=== PATIENT | male | born 1960 | race Asian ===

== ENCOUNTER 2023-10-19 12:46 | Emergency (ER) | payer MEDICARE ==
[~2023-10-19] VITALS: Ht 154.9 cm; Wt 59.0 kg
[2023-10-19 12:48] VITALS: TEMP 98
[2023-10-19 14:25] LABS: BASOPHILS # (AUTO) 0.1 X10'3 (0-0.2); BASOPHILS % (AUTO) 0.8 % (0-1); EOSINOPHILS # (AUTO) 0.4 X10'3 (0-0.9); EOSINOPHILS % (AUTO) 3.6 % (0-6); HEMATOCRIT 44.3 % (42.0-52.0); HEMOGLOBIN 14.6 g/dl (14.0-17.9); LYMPHOCYTES # (AUTO) 2.4 X10'3 (1.1-4.8); LYMPHOCYTES % (AUTO) 24.4 % (21-51); MEAN CORPUSCULAR HEMOGLOBIN 32.3 PG (27.0-31.0); MEAN PLATELET VOLUME 8.7 FL (7.4-10.4); MONOCYTES # (AUTO) 1.4 X10'3 (0-0.9); MONOCYTES % (AUTO) 13.9 % (2-12); NEUTROPHILS # (AUTO) 5.6 X10'3 (1.8-7.7); NEUTROPHILS % (AUTO) 57.3 % (42-75); PLATELET COUNT 284 X10'3 (140-440); RED BLOOD COUNT 4.52 X10'6 (4.70-6.10); RED CELL DISTRIBUTION WIDTH 14.7 % (11.5-14.5); WHITE BLOOD COUNT 9.8 X10'3 (4.5-11.0)
[2023-10-19 14:49] LABS: ANION GAP 8 (8-16); BLOOD UREA NITROGEN 9 MG/DL (7-18); BUN/CREATININE RATIO 5.8 (10.0-20.0); CALCIUM 9.5 MG/DL (8.5-10.1); CHLORIDE 100 MMOL/L (99-107); CREATININE 1.54 MG/DL (0.60-1.10); GLUCOSE 119 MG/DL (70-104); POTASSIUM 4.2 MMOL/L (3.5-5.1); PRO BRAIN NATRIURETIC PEPTIDE 62 PG/ML (0-125); SODIUM 135 MMOL/L (135-145); TOTAL CARBON DIOXIDE 27.1 MMOL/L (24-32); eCRCL 37 ML/MIN; eGFR 46 ML/MIN
[2023-10-19] MEDS: normal saline 1000ml 1,000 ML IV ONE (15:48)
[2023-10-19] MEDS ORDERED: HYDR28CR14 TOP (16:03)
[2023-10-19 17:26] VITALS: BP 105/75; PULSE 65; RESP 17; O2SAT 97
== END 2023-10-19 17:35 | disposition home or self-care (01) ==
LOC: ER 12:47
DX: B34.9 Viral infection, unspecified (principal); Z20.822 Contact with and (suspected) exposure to COVID-19; E60 Dietary zinc deficiency; M79.10 Myalgia, unspecified site; R21 Rash and other nonspecific skin eruption
CPT/HCPCS: 36415; 71045; 80048; 83880; 84484; 85025; 87502; 87503; 87811; 93005; 96360; 99285; J7030

== ENCOUNTER 2024-08-04 17:13 | Inpatient (IN) | payer MEDICARE ==
[~2024-08-04] VITALS: Ht 154.9 cm; Wt 73.8 kg
[~2024-08-04 17:13] MED LIST: HYDR28CR14 TOP
[2024-08-04 19:21] LABS: BASOPHILS % (AUTO) 0.2 % (0-1); EOSINOPHILS # (AUTO) 0.2 X10'3 (0-0.9); EOSINOPHILS % (AUTO) 0.9 % (0-6); HEMATOCRIT 41.9 % (42.0-52.0); HEMOGLOBIN 14.1 g/dl (14.0-17.9); LYMPHOCYTES # (AUTO) 0.4 X10'3 (1.1-4.8); LYMPHOCYTES % (AUTO) 2.2 % (21-51); MEAN CORPUSCULAR HEMOGLOBIN 32.8 PG (27.0-31.0); MEAN CORPUSCULAR HGB CONC 33.6 g/dL (33.0-36.5); MEAN CORPUSCULAR VOLUME 97.6 FL (78-98); MEAN PLATELET VOLUME 9.9 FL (7.4-10.4); MONOCYTES # (AUTO) 0.6 X10'3 (0-0.9); MONOCYTES % (AUTO) 3.5 % (2-12); NEUTROPHILS # (AUTO) 16.4 X10'3 (1.8-7.7); NEUTROPHILS % (AUTO) 93.2 % (42-75); PLATELET COUNT 163 X10'3 (140-440); RED BLOOD COUNT 4.29 X10'6 (4.70-6.10); RED CELL DISTRIBUTION WIDTH 15.3 % (11.5-14.5); WHITE BLOOD COUNT 17.5 X10'3 (4.5-11.0)
[2024-08-04 19:41] LABS: TOTAL CELLS COUNTED 100
[2024-08-04 19:42] LABS: PLATELET ESTIMATE NORMAL
[2024-08-04 19:44] LABS: ALANINE AMINOTRANSFERASE 27 U/L (12-78); ALBUMIN/GLOBULIN RATIO 0.8 (1.1-1.5); ALKALINE PHOSPHATASE 82 IU/L (46-116); ANION GAP 11 (8-16); ASPARTATE AMINO TRANSFERASE 16 U/L (10-37); BILIRUBIN,TOTAL 0.9 MG/DL (0.1-1.0); BLOOD UREA NITROGEN 59 MG/DL (7-18); BUN/CREATININE RATIO 21.9 (10.0-20.0); CALCIUM 8.6 MG/DL (8.5-10.1); CHLORIDE 100 MMOL/L (99-107); CREATININE 2.69 MG/DL (0.60-1.10); GLUCOSE 97 MG/DL (70-104); POTASSIUM 3.7 MMOL/L (3.5-5.1); PRO BRAIN NATRIURETIC PEPTIDE 1216 PG/ML (0-125); SODIUM 132 MMOL/L (135-145); TOTAL CARBON DIOXIDE 20.7 MMOL/L (24-32); TOTAL PROTEIN 6.7 G/DL (6.4-8.2); eCRCL 21 ML/MIN; eGFR 24 ML/MIN
[2024-08-04] MEDS: normal saline 1000ml 1,000 ML IV STA (23:10)
[2024-08-05] MEDS: CefTRIAXone/D5W-Rocephin 1gm 50 ML IV STA
[2024-08-05] MEDS: normal saline 1000ml 1,000 ML IV STA (00:02)
[2024-08-05] MEDS: azithromycin/NS 500mg/250ml 250 ML IV STA (00:34)
[2024-08-05] MEDS ORDERED: mag hydrox/Alum hydrox/simeth 30ml oral suspension PO PRN (01:45)
[2024-08-05] MEDS ORDERED: magnesium Cl slow-release 64mg tablet PO PRN (01:45)
[2024-08-05] MEDS ORDERED: magnesium hydroxide 30ml (MOM) UD suspension PO PRN (01:45)
[2024-08-05] MEDS ORDERED: potassium Cl 40MEQ/1/2NS 520ml 520 ML IV PRN (01:45)
[2024-08-05] MEDS ORDERED: magnesium sulf-water 2g/50mL 50 ML IV PRN (01:45)
[2024-08-05] MEDS ORDERED: guaiFENesin/DM/phenylephrine syrup 120ml bottle PO PRN (01:45)
[2024-08-05] MEDS ORDERED: potassium Cl 20 mEq SR tablet PO PRN ×2 (01:45)
[2024-08-05] MEDS ORDERED: ondansetron/PF 4mg/2ml inj IV PRN (01:45)
[2024-08-05] MEDS ORDERED: magnesium sulf-water 4G/100mL 100 ML IV PRN (01:45)
[2024-08-05] MEDS ORDERED: ATOR20TA66 PO (02:09)
[2024-08-05] MEDS ORDERED: ALLO300T8 PO (02:09)
[2024-08-05 02:53] LABS: HEMOGLOBIN A1C 6.1 % (4.5-6.2); MAGNESIUM 1.7 MG/DL (1.5-2.4); POTASSIUM 3.9 MMOL/L (3.5-5.1)
[2024-08-05] MEDS: normal saline 1000ml 1,000 ML IV SCH (03:08)
[2024-08-05] MEDS: acetaminophen 325mg tablet PO PRN (05:31)
[2024-08-05 05:53] LABS: BILIRUBIN,URINE NEGATIVE (Neg); CLARITY,URINE CLEAR (Clear); COLOR,URINE YELLOW (Yellow); GLUCOSE, URINE NEGATIVE (Neg); KETONES,URINE NEGATIVE (Neg); LEUKOCYTE ESTERASE ,URINE SMALL (Neg); NITRITES, URINE NEGATIVE (Neg); OCCULT BLOOD,URINE NEGATIVE (Neg); PH,URINE 5.5 (4.8-8.0); PROTEIN,URINE NEGATIVE (Neg); UROBILINOGEN,URINE 0.2 E.U/dL (0.2-1.0)
[2024-08-05 06:04] LABS: UA COLLECTION TYPE CLN CATCH MIDSTREAM
[2024-08-05 06:14] LABS: WBC,URINE 20-30 /HPF (0-4)
[2024-08-05 06:15] LABS: BACTERIA,URINE FEW /HPF (Neg); MUCUS STRANDS NONE SEEN /LPF (Neg); RBC,URINE NONE SEEN /HPF (0-2); SQUAMOUS EPITHELIAL CELL,UR FEW /LPF (FEW); WBC CLUMPS,URINE FEW /HPF (NEGATIVE)
[2024-08-05 07:19] VITALS: BP 92/53; PULSE 64; RESP 18; TEMP 97.6; O2SAT 96
[2024-08-05] MEDS: pantoprazole 40mg Tablet.DR PO SCH (07:43)
[2024-08-05] MEDS: docusate sod 100mg capsule PO SCH (07:43)
[2024-08-05] MEDS: heparin, porcine 5000 units/ml vial SQ SCH (07:46)
[2024-08-05 08:00] VITALS: RESP 16
[2024-08-05] MEDS: K and/or MAG REPLACEMENT MC SCH (08:00)
[2024-08-05] MEDS: azithromycin/NS 500mg/250ml 250 ML IV SCH (09:39)
[2024-08-05 10:00] VITALS: BP 84/50; PULSE 62; RESP 17; TEMP 97.6; O2SAT 97
[2024-08-05] MEDS ORDERED: pneumococcal 23-VAL P-sac vacc 25 mcg/0.5ml vial IMVAC ONE (17:55)
[2024-08-05 18:00] VITALS: BP 87/55; PULSE 56; RESP 15; TEMP 98.1; O2SAT 99
[2024-08-05] MEDS: CefTRIAXone/D5W-Rocephin 1gm 50 ML IV SCH (21:22)
[2024-08-05 22:00] VITALS: BP 100/64; PULSE 60; RESP 12; TEMP 98.2; O2SAT 98
[2024-08-05] MEDS ORDERED: azithromycin 250mg tablet PO SCH (22:00)
[2024-08-05] MEDS ORDERED: ALLO100T PO (22:43)
[2024-08-06 05:26] LABS: BASOPHILS % (AUTO) 0.2 % (0-1); EOSINOPHILS # (AUTO) 0.2 X10'3 (0-0.9); EOSINOPHILS % (AUTO) 1.4 % (0-6); HEMATOCRIT 36.8 % (42.0-52.0); HEMOGLOBIN 12.3 g/dl (14.0-17.9); LYMPHOCYTES # (AUTO) 0.9 X10'3 (1.1-4.8); LYMPHOCYTES % (AUTO) 5.5 % (21-51); MEAN CORPUSCULAR HEMOGLOBIN 32.5 PG (27.0-31.0); MEAN CORPUSCULAR HGB CONC 33.4 g/dL (33.0-36.5); MEAN CORPUSCULAR VOLUME 97.4 FL (78-98); MEAN PLATELET VOLUME 9.2 FL (7.4-10.4); MONOCYTES # (AUTO) 1.3 X10'3 (0-0.9); MONOCYTES % (AUTO) 7.6 % (2-12); NEUTROPHILS # (AUTO) 14.5 X10'3 (1.8-7.7); NEUTROPHILS % (AUTO) 85.3 % (42-75); PLATELET COUNT 139 X10'3 (140-440); RED BLOOD COUNT 3.78 X10'6 (4.70-6.10); RED CELL DISTRIBUTION WIDTH 15.7 % (11.5-14.5)
[2024-08-06 05:40] LABS: ALBUMIN 1.9 G/DL (3.4-5.0); ANION GAP 11 (8-16); BLOOD UREA NITROGEN 56 MG/DL (7-18); BUN/CREATININE RATIO 33.5 (10.0-20.0); CALCIUM 8.7 MG/DL (8.5-10.1); CHLORIDE 112 MMOL/L (99-107); CHOL/HDL RATIO 3.9 (0.00-4.99); CHOLESTEROL 66 MG/DL (0-200); CREATININE 1.67 MG/DL (0.60-1.10); GLUCOSE 75 MG/DL (70-104); HDL CHOLESTEROL 17 MG/DL (35-60); LDL CHOLESTEROL 26 MG/DL (50-100); MAGNESIUM 2.2 MG/DL (1.5-2.4); POTASSIUM 3.8 MMOL/L (3.5-5.1); SODIUM 141 MMOL/L (135-145); TOTAL CARBON DIOXIDE 17.7 MMOL/L (24-32); TRIGLYCERIDES 92 MG/DL (20-135); eCRCL 33 ML/MIN; eGFR 42 ML/MIN
[2024-08-06 08:00] VITALS: RESP 13; O2SAT 97
[2024-08-06] MEDS: pneumococcal 23-VAL P-sac vacc 25 mcg/0.5ml vial IMVAC ONE (10:59)
[2024-08-06 18:00] VITALS: BP 113/71; PULSE 62; RESP 18; TEMP 97.4; O2SAT 9; O2SAT 92
[2024-08-06 19:55] VITALS: RESP 16; O2SAT 97
[2024-08-06] MEDS: guaiFENesin/DM 10ml UD oral syrup PO PRN (20:05)
[2024-08-06 22:00] VITALS: BP 132/90; PULSE 61; RESP 14; TEMP 97.6; O2SAT 97
[2024-08-07] MEDS: baclofen 10mg tablet PO PRN (01:58)
[2024-08-07] MEDS: diphenhydrAMINE 25mg capsule PO PRN (03:45)
[2024-08-07 04:17] LABS: BASOPHILS % (AUTO) 0.1 % (0-1); EOSINOPHILS # (AUTO) 0.2 X10'3 (0-0.9); EOSINOPHILS % (AUTO) 1.2 % (0-6); HEMATOCRIT 38.1 % (42.0-52.0); HEMOGLOBIN 12.9 g/dl (14.0-17.9); LYMPHOCYTES # (AUTO) 1.5 X10'3 (1.1-4.8); LYMPHOCYTES % (AUTO) 8.2 % (21-51); MEAN CORPUSCULAR HEMOGLOBIN 32.7 PG (27.0-31.0); MEAN CORPUSCULAR HGB CONC 33.7 g/dL (33.0-36.5); MEAN PLATELET VOLUME 9.7 FL (7.4-10.4); MONOCYTES # (AUTO) 2.4 X10'3 (0-0.9); MONOCYTES % (AUTO) 13.5 % (2-12); NEUTROPHILS # (AUTO) 13.9 X10'3 (1.8-7.7); PLATELET COUNT 167 X10'3 (140-440); RED BLOOD COUNT 3.93 X10'6 (4.70-6.10); RED CELL DISTRIBUTION WIDTH 15.8 % (11.5-14.5)
[2024-08-07 04:33] LABS: ANION GAP 13 (8-16); BLOOD UREA NITROGEN 36 MG/DL (7-18); BUN/CREATININE RATIO 26.7 (10.0-20.0); CALCIUM 8.6 MG/DL (8.5-10.1); CHLORIDE 109 MMOL/L (99-107); CREATININE 1.35 MG/DL (0.60-1.10); GLUCOSE 99 MG/DL (70-104); POTASSIUM 3.8 MMOL/L (3.5-5.1); SODIUM 140 MMOL/L (135-145); TOTAL CARBON DIOXIDE 17.9 MMOL/L (24-32); eCRCL 41 ML/MIN; eGFR 53 ML/MIN
[2024-08-07 06:00] VITALS: BP 139/70; PULSE 20; TEMP 98.5; O2SAT 97
[2024-08-07] MEDS: levoFLOXACIN-Levaquin 500mg/D5 100 ML IV SCH (11:20)
[2024-08-07 18:00] VITALS: BP 138/72; PULSE 61; RESP 18; TEMP 99.3; O2SAT 98
[2024-08-07 20:00] VITALS: RESP 18; O2SAT 96
[2024-08-07 22:00] VITALS: BP 142/78; PULSE 60; RESP 18; TEMP 98.4; O2SAT 97
[2024-08-08 05:02] LABS: BASOPHILS % (AUTO) 0.3 % (0-1); EOSINOPHILS # (AUTO) 0.2 X10'3 (0-0.9); EOSINOPHILS % (AUTO) 2.2 % (0-6); HEMATOCRIT 38.6 % (42.0-52.0); HEMOGLOBIN 13.1 g/dl (14.0-17.9); LYMPHOCYTES # (AUTO) 1.2 X10'3 (1.1-4.8); LYMPHOCYTES % (AUTO) 11.7 % (21-51); MEAN CORPUSCULAR HEMOGLOBIN 32.6 PG (27.0-31.0); MEAN PLATELET VOLUME 8.8 FL (7.4-10.4); MONOCYTES # (AUTO) 1.8 X10'3 (0-0.9); MONOCYTES % (AUTO) 17.3 % (2-12); NEUTROPHILS # (AUTO) 7.3 X10'3 (1.8-7.7); NEUTROPHILS % (AUTO) 68.5 % (42-75); PLATELET COUNT 173 X10'3 (140-440); RED BLOOD COUNT 4.02 X10'6 (4.70-6.10); RED CELL DISTRIBUTION WIDTH 15.9 % (11.5-14.5); WHITE BLOOD COUNT 10.6 X10'3 (4.5-11.0)
[2024-08-08] MEDS: morphine 2 MG/ML inj. syringe IV PRN (05:07)
[2024-08-08 05:10] LABS: ALBUMIN 1.8 G/DL (3.4-5.0); ANION GAP 10 (8-16); BLOOD UREA NITROGEN 23 MG/DL (7-18); CALCIUM 8.3 MG/DL (8.5-10.1); CHLORIDE 108 MMOL/L (99-107); CREATININE 1.35 MG/DL (0.60-1.10); GLUCOSE 84 MG/DL (70-104); MAGNESIUM 2.2 MG/DL (1.5-2.4); POTASSIUM 3.7 MMOL/L (3.5-5.1); SODIUM 137 MMOL/L (135-145); TOTAL CARBON DIOXIDE 18.8 MMOL/L (24-32); eCRCL 41 ML/MIN; eGFR 53 ML/MIN
[2024-08-08 05:17] LABS: NUCLEATED RED BLOOD CELLS 1 /100WBC (0-0); TOTAL CELLS COUNTED 100
[2024-08-08 05:18] LABS: PLATELET ESTIMATE NORMAL
[2024-08-08 06:00] VITALS: BP 138/71; PULSE 65; RESP 14; TEMP 98.5; O2SAT 96
[2024-08-08 08:00] VITALS: RESP 20; O2SAT 98
[2024-08-08 10:37] VITALS: BP 100/64; PULSE 60; RESP 20; TEMP 99.3; O2SAT 98
[2024-08-08] MEDS ORDERED: acetaminophen 325mg tablet PO PRN (17:20)
[2024-08-08 18:00] VITALS: BP 121/66; PULSE 72; RESP 22; TEMP 98.9; O2SAT 95
[2024-08-08 20:00] VITALS: RESP 20; O2SAT 96
[2024-08-08] MEDS: HYDROcodone/acetaminophen 10/325mg tab PO PRN (20:57)
[2024-08-08] MEDS: allopurinol 100mg tablet PO PRN (20:58)
[2024-08-08 22:00] VITALS: BP 111/64; PULSE 67; RESP 20; TEMP 99.3; O2SAT 96
[2024-08-08] MEDS ORDERED: allopurinol 300 MG tablet PO ONE (22:25)
[2024-08-08] MEDS: allopurinol 300 MG tablet PO ONE (22:37)
[2024-08-08] MEDS: allopurinol 100mg tablet PO ONE (23:10)
[2024-08-09 06:37] LABS: BASOPHILS % (AUTO) 0.2 % (0-1); EOSINOPHILS # (AUTO) 0.4 X10'3 (0-0.9); EOSINOPHILS % (AUTO) 2.1 % (0-6); HEMATOCRIT 37.5 % (42.0-52.0); HEMOGLOBIN 12.6 g/dl (14.0-17.9); LYMPHOCYTES # (AUTO) 1.3 X10'3 (1.1-4.8); LYMPHOCYTES % (AUTO) 6.9 % (21-51); MEAN CORPUSCULAR HEMOGLOBIN 32.5 PG (27.0-31.0); MEAN CORPUSCULAR HGB CONC 33.7 g/dL (33.0-36.5); MEAN CORPUSCULAR VOLUME 96.4 FL (78-98); MONOCYTES # (AUTO) 1.8 X10'3 (0-0.9); MONOCYTES % (AUTO) 9.2 % (2-12); NEUTROPHILS # (AUTO) 15.9 X10'3 (1.8-7.7); NEUTROPHILS % (AUTO) 81.6 % (42-75); PLATELET COUNT 193 X10'3 (140-440); RED BLOOD COUNT 3.89 X10'6 (4.70-6.10); WHITE BLOOD COUNT 19.5 X10'3 (4.5-11.0)
[2024-08-09 07:03] LABS: ALBUMIN 1.7 G/DL (3.4-5.0); ANION GAP 14 (8-16); BLOOD UREA NITROGEN 24 MG/DL (7-18); BUN/CREATININE RATIO 21.1 (10.0-20.0); CALCIUM 8.7 MG/DL (8.5-10.1); CHLORIDE 105 MMOL/L (99-107); CREATININE 1.14 MG/DL (0.60-1.10); GLUCOSE 83 MG/DL (70-104); MAGNESIUM 1.7 MG/DL (1.5-2.4); POTASSIUM 3.5 MMOL/L (3.5-5.1); SODIUM 137 MMOL/L (135-145); TOTAL CARBON DIOXIDE 17.8 MMOL/L (24-32); URIC ACID 5.7 MG/DL (3.5-7.2); eCRCL 49 ML/MIN; eGFR 65 ML/MIN
[2024-08-09 07:11] VITALS: BP 121/70; PULSE 63; RESP 17; TEMP 99.4; O2SAT 98
[2024-08-09] MEDS ORDERED: allopurinol 300 MG tablet PO SCH ×2 (08:00→08:30)
[2024-08-09] MEDS: allopurinol 100mg tablet PO SCH (08:04)
[2024-08-09 11:35] VITALS: BP 91/53; PULSE 67; RESP 16; TEMP 98.3; O2SAT 95
[2024-08-09 11:55] VITALS: RESP 20
[2024-08-09] MEDS: colchicine 0.6mg tablet PO SCH (12:38)
[2024-08-09 18:00] VITALS: BP 101/64; PULSE 51; RESP 20; TEMP 97.5; O2SAT 96
[2024-08-09] MEDS: colchicine 0.6mg tablet PO ONE ×2 (18:37→19:31)
[2024-08-09] MEDS: predniSONE 20 mg tablet PO ONE (18:41)
[2024-08-09 20:00] VITALS: RESP 18; O2SAT 96
[2024-08-09] MEDS ORDERED: colchicine 0.6mg tablet PO SCH (20:00)
[2024-08-09 22:00] VITALS: BP 118/62; PULSE 98; RESP 18; TEMP 96.9; O2SAT 98
[2024-08-10 06:00] VITALS: BP 124/68; PULSE 51; RESP 18; TEMP 97.3; O2SAT 96
[2024-08-10 06:33] LABS: BASOPHILS % (AUTO) 0 % (0-1); EOSINOPHILS % (AUTO) 0 % (0-6); HEMATOCRIT 36.2 % (42.0-52.0); HEMOGLOBIN 12.2 g/dl (14.0-17.9); LYMPHOCYTES # (AUTO) 0.7 X10'3 (1.1-4.8); LYMPHOCYTES % (AUTO) 2.9 % (21-51); MEAN CORPUSCULAR HEMOGLOBIN 32.5 PG (27.0-31.0); MEAN CORPUSCULAR HGB CONC 33.8 g/dL (33.0-36.5); MEAN CORPUSCULAR VOLUME 96.1 FL (78-98); MEAN PLATELET VOLUME 9.3 FL (7.4-10.4); MONOCYTES # (AUTO) 0.6 X10'3 (0-0.9); MONOCYTES % (AUTO) 2.9 % (2-12); NEUTROPHILS % (AUTO) 94.2 % (42-75); PLATELET COUNT 195 X10'3 (140-440); RED BLOOD COUNT 3.77 X10'6 (4.70-6.10); RED CELL DISTRIBUTION WIDTH 15.9 % (11.5-14.5); WHITE BLOOD COUNT 22.3 X10'3 (4.5-11.0)
[2024-08-10 06:38] LABS: ALBUMIN 1.7 G/DL (3.4-5.0); ANION GAP 13 (8-16); BLOOD UREA NITROGEN 28 MG/DL (7-18); BUN/CREATININE RATIO 23.1 (10.0-20.0); CALCIUM 8.5 MG/DL (8.5-10.1); CHLORIDE 108 MMOL/L (99-107); CREATININE 1.21 MG/DL (0.60-1.10); GLUCOSE 122 MG/DL (70-104); POTASSIUM 4.1 MMOL/L (3.5-5.1); SODIUM 139 MMOL/L (135-145); TOTAL CARBON DIOXIDE 18.3 MMOL/L (24-32); eCRCL 46 ML/MIN; eGFR 61 ML/MIN
[2024-08-10] MEDS: predniSONE 20 mg tablet PO SCH (07:36)
[2024-08-10 10:38] VITALS: BP 116/62; PULSE 54; RESP 16; TEMP 97.5; O2SAT 95
[2024-08-10] MEDS: lactose-reduced food (Ensure Enlive) - 237ml bottle PO SCH (17:49)
[2024-08-10 19:00] VITALS: BP 125/62; PULSE 50; RESP 16; TEMP 97.3; O2SAT 97
[2024-08-10 22:00] VITALS: BP 138/72; PULSE 53; RESP 14; TEMP 97.8; O2SAT 96
[2024-08-11] MEDS: HYDROcodone/acetaminophen 5mg/325mg tablet PO PRN (02:12)
[2024-08-11 06:00] VITALS: BP 128/70; PULSE 52; RESP 14; TEMP 98; O2SAT 98
[2024-08-11 06:30] LABS: BASOPHILS % (AUTO) 0.1 % (0-1); EOSINOPHILS % (AUTO) 0.2 % (0-6); HEMATOCRIT 35.9 % (42.0-52.0); HEMOGLOBIN 11.9 g/dl (14.0-17.9); LYMPHOCYTES # (AUTO) 1.4 X10'3 (1.1-4.8); LYMPHOCYTES % (AUTO) 5.9 % (21-51); MEAN CORPUSCULAR HEMOGLOBIN 31.8 PG (27.0-31.0); MEAN CORPUSCULAR HGB CONC 33.2 g/dL (33.0-36.5); MEAN CORPUSCULAR VOLUME 95.8 FL (78-98); MEAN PLATELET VOLUME 9.2 FL (7.4-10.4); MONOCYTES # (AUTO) 1.4 X10'3 (0-0.9); MONOCYTES % (AUTO) 5.8 % (2-12); NEUTROPHILS # (AUTO) 20.6 X10'3 (1.8-7.7); PLATELET COUNT 253 X10'3 (140-440); RED BLOOD COUNT 3.75 X10'6 (4.70-6.10); WHITE BLOOD COUNT 23.4 X10'3 (4.5-11.0)
[2024-08-11 07:17] LABS: ALANINE AMINOTRANSFERASE 86 U/L (12-78); ALBUMIN 1.7 G/DL (3.4-5.0); ALBUMIN/GLOBULIN RATIO 0.4 (1.1-1.5); ALKALINE PHOSPHATASE 181 IU/L (46-116); ANION GAP 12 (8-16); ASPARTATE AMINO TRANSFERASE 55 U/L (10-37); BILIRUBIN,TOTAL 1.1 MG/DL (0.1-1.0); BLOOD UREA NITROGEN 33 MG/DL (7-18); BUN/CREATININE RATIO 27.5 (10.0-20.0); CALCIUM 8.5 MG/DL (8.5-10.1); CHLORIDE 110 MMOL/L (99-107); GLUCOSE 83 MG/DL (70-104); POTASSIUM 3.7 MMOL/L (3.5-5.1); SODIUM 141 MMOL/L (135-145); TOTAL CARBON DIOXIDE 18.7 MMOL/L (24-32); TOTAL PROTEIN 5.5 G/DL (6.4-8.2); eCRCL 47 ML/MIN; eGFR 61 ML/MIN
[2024-08-11] MEDS ORDERED: iohexol 300mg/ml 100ml inj. ONE (09:45)
[2024-08-11 10:00] VITALS: BP 132/77; PULSE 51; RESP 16; TEMP 97.9; O2SAT 97
[2024-08-11 19:00] VITALS: BP 137/81; PULSE 47; RESP 18; TEMP 98.2; O2SAT 96
[2024-08-12 05:22] LABS: BASOPHILS % (AUTO) 0.1 % (0-1); EOSINOPHILS # (AUTO) 0.1 X10'3 (0-0.9); EOSINOPHILS % (AUTO) 0.4 % (0-6); HEMATOCRIT 36.4 % (42.0-52.0); HEMOGLOBIN 11.9 g/dl (14.0-17.9); LYMPHOCYTES # (AUTO) 1.4 X10'3 (1.1-4.8); LYMPHOCYTES % (AUTO) 10.2 % (21-51); MEAN CORPUSCULAR HEMOGLOBIN 31.3 PG (27.0-31.0); MEAN CORPUSCULAR HGB CONC 32.6 g/dL (33.0-36.5); MEAN CORPUSCULAR VOLUME 96.1 FL (78-98); MEAN PLATELET VOLUME 8.9 FL (7.4-10.4); MONOCYTES # (AUTO) 1.1 X10'3 (0-0.9); MONOCYTES % (AUTO) 8.1 % (2-12); NEUTROPHILS # (AUTO) 10.7 X10'3 (1.8-7.7); NEUTROPHILS % (AUTO) 81.2 % (42-75); PLATELET COUNT 262 X10'3 (140-440); RED BLOOD COUNT 3.78 X10'6 (4.70-6.10); RED CELL DISTRIBUTION WIDTH 15.9 % (11.5-14.5); WHITE BLOOD COUNT 13.2 X10'3 (4.5-11.0)
[2024-08-12 05:41] LABS: ALANINE AMINOTRANSFERASE 204 U/L (12-78); ALBUMIN 1.7 G/DL (3.4-5.0); ALBUMIN/GLOBULIN RATIO 0.5 (1.1-1.5); ALKALINE PHOSPHATASE 188 IU/L (46-116); ANION GAP 7 (8-16); ASPARTATE AMINO TRANSFERASE 152 U/L (10-37); BILIRUBIN,TOTAL 1.1 MG/DL (0.1-1.0); BLOOD UREA NITROGEN 30 MG/DL (7-18); BUN/CREATININE RATIO 26.1 (10.0-20.0); CHLORIDE 111 MMOL/L (99-107); CREATININE 1.15 MG/DL (0.60-1.10); GLUCOSE 78 MG/DL (70-104); LACTATE DEHYDROGENASE 158 U/L (85-227); POTASSIUM 3.7 MMOL/L (3.5-5.1); SODIUM 139 MMOL/L (135-145); TOTAL CARBON DIOXIDE 21.1 MMOL/L (24-32); TOTAL PROTEIN 5.1 G/DL (6.4-8.2); eCRCL 49 ML/MIN; eGFR 64 ML/MIN
[2024-08-12 06:00] VITALS: BP 144/74; PULSE 55; RESP 16; TEMP 97.6; O2SAT 98
[2024-08-12 07:53] LABS: INR 1.1 INR; PROTHROMBIN TIME 11.9 SECONDS (9.0-12.0)
[2024-08-12 09:48] VITALS: BP_SYST 123; BP_SYST 139; BP_DIAS 54; BP_DIAS 79; PULSE 56; PULSE 74; RESP 16; RESP 17; TEMP 98; O2SAT 94; O2SAT 99
[2024-08-12 18:00] VITALS: BP 145/72; PULSE 50; RESP 17; TEMP 97.9; O2SAT 98
[2024-08-12 19:15] VITALS: RESP 17; O2SAT 98
[2024-08-12] MEDS ORDERED: LEVO-65 PO (20:05)
== END 2024-08-12 21:04 | disposition home or self-care (01) | DRG 871 ==
LOC: ER 17:14 → ED HOLD 08-05 01:54 → SUR 3N 08-05 07:05
PROVIDERS: ADMIT Internal Medicine Critical Care Medicine; ATTEND Nurse Practitioner Family
PROC: BW241ZZ Computerized Tomography (CT Scan) of Chest and Abdomen using Low Osmolar Contrast (ICD-10-PCS; principal; 2024-08-11)
DX: A40.3 Sepsis due to Streptococcus pneumoniae (principal); J16.8 Pneumonia due to other specified infectious organisms; J86.9 Pyothorax without fistula; N17.0 Acute kidney failure with tubular necrosis; R65.20 Severe sepsis without septic shock; E87.1 Hypo-osmolality and hyponatremia; E78.5 Hyperlipidemia, unspecified; N18.9 Chronic kidney disease, unspecified; Z20.822 Contact with and (suspected) exposure to COVID-19; M10.9 Gout, unspecified; T38.0X5A Adverse effect of glucocorticoids and synthetic analogues, initial encounter; Y92.89 Other specified places as the place of occurrence of the external cause; Z88.0 Allergy status to penicillin
CPT/HCPCS: 36415; 71046; 71250; 71260; 76604; 80048; 80053; 80061; 81001; 83036; 83605; 83615; 83735; 83880; 83930; 84132; 84145; 84484; 84550; 85007; 85025; 85610; 87040; 87077; 87081; 87088; 87186; 87502; 87503; 87811; 90732; 93005; 93306; 96365; 96367; 99285; A4615; A6590; G0378; J0456; J0696; J1644; J1956; J2270; J7030; J7512; Q0163; Q9967